=== PATIENT | female | born 1995 | race African-American/Black ===

== ENCOUNTER 2024-11-14 10:34 | Outpatient (REF) | payer MEDICAID, SELFPAY ==
--- NOTE | ~2024-11-14 | XR_ITS ---
EXAMINATION: XR ANKLE 3 OR MORE VIEWS RIGHT HISTORY: PAIN COMPARISON: There are no prior studies available for comparison. FINDINGS: Three views of the right ankle are submitted. Osseous mineralization is normal. There is no fracture or dislocation. The joint spaces are preserved. The soft tissues are unremarkable. XR/XR ankle RT min 3V IMPRESSION: Unremarkable examination of the right ankle. Electronically signed by: Jose Corrales MD 11/14/2024 12:09 PM EDT
--- OUTSIDE RECORDS SUMMARY | 2024-11-14 12:08 | XMS_ITS | Encounter Summary ---
Author Organization [employer] Address [address] [facility] [address] [facility] [address] [place] [address] Care Team Providers Care [employer] Workflow Consultant Name Role Phone Unavailable Primary Care Provider Unavailabl e Encounter Details Date Type Department Care Team (Latest Contact Info) Description 11/14/2024 Travel Social History Tobacco Use Types Packs/Day Years Used Date Smoking Tobacco: Never Assessed Comments Unknown Sex and Gender Information Value Date Recorded Sex Assigned at Choose not to disclose 9:11 AM EDT Legal Sex Female 10:24 AM EST Gender Identity Choose not to disclose 9:11 AM EDT Sexual Orientation Choose not to disclose 2024 9:11 AM EDT documented as of this encounter Plan of Treatment Not on file documented as of this encounter Visit Diagnoses Not on filedocumented in this encounter
--- OUTSIDE RECORDS SUMMARY | 2024-11-14 12:08 | XMS_ITS | Encounter Summary ---
Author Organization [address] [employer] Address [address] [facility] [address] [place] [address] Care Team Providers Care Brazer Assembler Name Role Phone Unavailable Primary Care Provider Unavailabl e Reason for Visit * Reason Comments Foot Pain Encounter Details Date Type Department Care Team (Late st Contact Info) Description 11/14/2024 10:00 AM EDT Office Visit [facility] [address] [place] [address] Maico Villareal MD [address] [place] [address] Chronic pain of right ankle (Primary Dx) Social History Tobacco Use Types Packs/Day Years Used Date Smoking Tobacco: Never Assessed Comments Unknown Sex and Gender Information Value Date Recorded Sex Assigned at Choose not to disclose 9:11 AM EDT Legal Sex Female 10:24 AM EST Gender Identity Choose not to disclose 9:11 AM EDT Sexual Orientation Choose not to disclose 2024 9:11 AM EDT documented as of this encounter Last Filed Vital Signs Vital Sign Reading Time Taken Comments Blood Pressure 127/83 11/14/2024 9:48 AM EDT Pulse 75 11/14/2024 9:48 AM EDT Temperature 36.8 ??C (98.3 ??F) 11/14/2024 9:48 AM ED T Respiratory Rate 18 11/14/2024 9:48 AM EDT Oxygen Saturation 100% 11/14/2024 9:48 AM EDT Inhaled Oxygen Concentration - - Weight 110 kg (243 lb) 11/14/2024 9:48 AM EDT Height - - Body Mass Index - - documented in this encounter Progress Notes * Maico Villareal MD - 11/14/2024 10:00 AM EDT Subjective History was provided by the patient. Jonatan Magana is a 29 y.o. choose not to disclose NEW PATIENT who presents for evaluation of7-year duration of right lateral ankle pain. Recalls falling at the onset of her symptoms. Moved from [facility] via [facility]/[place]. States increase pain with walking and getting up from a seated position. Tender to touch. Denies F/C. Tried a topical medication (unsure of the name) in the past without significant relief. Denies current sexual partner. Denies any chance of . [place]Creole telephone per diem interpreter: Prashanth (#[id number]) Objective Vitals: 11/14/24 0948 BP: 127/83 BP Location: Right arm Patient Position: Sitting BP Cuff Size: Adult Pulse: 75 Resp: 18 Temp: 98.3 ??F (36.8 ??C) TempSrc: Temporal SpO2: 100% Weight: 243 lb (110 kg) Physical Exam Vitals reviewed. Constitutional: General: Jonatan is not in acute distress. Appearance: Normal appearance. Jonatan is not ill-appearing, toxic-appearing or diaphoretic. HENT: Head: Normocephalic and atraumatic. Right Ear: External ear normal. Left Ear: External ear normal. Mouth/Throat: Pharynx: Oropharynx is clear. Eyes: Extraocular Movements: Extraocular movements intact. Conjunctiva/sclera: Conjunctivae normal. Pulmonary: Effort: Pulmonary effort is normal. Musculoskeletal: General: Tenderness present. No swelling or deformity. Normal range of motion. Cervical back: Neck supple. Right lower leg: No edema. Left lower leg: No edema. Comments: Right lateral ankle with tenderness to palpation at posterior talofibular ligament area; no deformity; no edema; no overlying skin erythema Skin: General: Skin is warm and dry. Neurological: General: No focal deficit present. Mental Status: Jonatan is alert and oriented to person, place, and time. Mental status is at baseline. Psychiatric: Mood and Affect: Mood normal. Behavior: Behavior normal. Jonatan was seen today for foot pain. Diagnoses and all orders for this visit: Chronic pain of right ankle (Primary) - XR Ankle 3+ Views Right; Future - ibuprofen 600 MG tablet; Take 1 tablet (600 mg) by mouth every 8 (eight) hours if needed for mildpain or moderate pain for up to 10 days. New patient presents to [facility] due to chronic right lateral ankle pain In the posterior talofibular ligament area Symptom onset 7 years ago after a fall Did not seek care until now Recently moved from [facility] (came to [place] in 03/2024) Suspect ligament strain, but will check X-ray given duration of her symptoms Recommended Ibuprofen 600mg TID prn Ankle stirrup brace provided today Indications for UC/ER use reviewed Advised to contact the clinic if persistent or worsening symptoms Agrees with the plan documented in this encounter Plan of Treatment Scheduled Orders Name Type Priority Associated Diagnoses Orde r Schedule XR Ankle 3+ Views Right Imaging Routine Chronic pain of right ankle Expected: 11/14/2024, Expires: 11/14/2025 documented as of this encounter Visit Diagnoses Diagnosis Chronic pain of right ankle- Primary documented in this encounter
--- OUTSIDE RECORDS SUMMARY | 2024-11-14 12:08 | XMS_ITS | Clinical Summary ---
Author Organization [employer] Address [address] [facility] [address] [place] [address] Care Team Providers Care Reprint Sorter Name Role Phone Unavailable Primary Care Provider Unavailabl e Allergies No known active allergies Medications ibuprofen 600 MG tabletIndicatio ns:Chronic pain of right ankle Take 1 tablet (600 mg) by mouth every 8 (eight) hours if needed for mild pain or moderate pain for up to 10 days. 30 tablet 11/14/2024 11/25/19 25 Active Encounters Date Type Department Care Team Description 11/14/2024 10:00 AM EDT Office Visit [facility] [address] [place] [id number] Maico Villareal MD Chronic pain of right ankle (Primary Dx) 11/14/2024 Travel from Last 3 Months Social History Tobacco Use Types Packs/Day Years Used Date Smoking Tobacco: Never Assessed Comments Unknown Sex and Gender Information Value Date Recorded Sex Assigned at Choose not to disclose 9:11 AM EDT Legal Sex Female 10:24 AM EST Gender Identity Choose not to disclose 9:11 AM EDT Sexual Orientation Choose not to disclose 2024 9:11 AM EDT Last Filed Vital Signs Vital Sign Reading [...] - - Body Mass Index - - Plan of Treatment Health Maintenance Due Date Last Done Comments Depression Screening 1993 HIV Screening 1993 SDOH Screening 1993 Alcohol/Substance Use Screening 2005 Tobacco Screening 2005 Family Planning (PISQ) 2008 Hepatitis C Screening 2011 DTaP/Tdap/Td Vaccines (1 - Tdap) 2012 Hepatitis B Vaccines (1 of 3 - 19+ 3-dose series) 2012 Pap Smear 2014 Cervical Cancer Screening 2023 HPV/Cotest 2023 COVID-19 Vaccine (1 - 2023-2 5 season) 2024 Influenza Vaccine (#1) 2024 Zoster Vaccines (1 of 2) 2043 RSV Patients and Pa tients Aged 60 years or older (1 - 1-dose 75+ series) 2068 HIB Vaccines Aged Out No longer eligi ble based on patient's age to complete this topic HPV Vaccines Aged Out No longer eligi ble based on patient's age to complete this topic Hepatitis A Vaccines Aged Out No long er eligible based on patient's age to complete this topic IPV Vaccines Aged Out No longer eligi ble based on patient's age to complete this topic Meningococcal Vaccine Aged Out No jim hilda eligible based on patient's age to complete this topic Pneumococcal Vaccine: Pediat rics (0 to 5 Years) and At-Risk Patients (6 to 49) Years) Aged Out No longer eligible b ased on patient's age to complete this topic RSV under 20 months Aged Out No longe r eligible based on patient's age to complete this topic Rotavirus Vaccines Aged Out No longer eligible based on patient's age to complete this topic Insurance Cell[employer] C3
== END 2024-11-14 10:35 | disposition home or self-care (01) ==
LOC: HO.HHCX 10:34
PROVIDERS: Visit Provider Family Medicine
DX: M25.571 Pain in right ankle and joints of right foot (principal); G89.29 Other chronic pain
CPT/HCPCS: 73610

== ENCOUNTER → 2024-11-14 10:37 | Outpatient (BNV) | payer MEDICAID, SELFPAY | PROVIDERS: Visit Provider Radiology Diagnostic Radiology | DX: M25.571 Pain in right ankle and joints of right foot (principal) | CPT/HCPCS: 73610 ==

== ENCOUNTER 2025-06-04 10:03 | Outpatient (REF) | payer MEDICAID, SELFPAY ==
[2025-06-04 12:15] LABS: Cholesterol 166 mg/dL (<200); HDL Cholesterol 40 mg/dL (>40); Triglycerides 76 mg/dL (<150)
[2025-06-04 12:29] LABS: Syphilis Screen Nonreactive (Nonreactive)
[2025-06-04 12:35] LABS: HBS Num1 13.50 mIU/mL (0-7.99); HBc Num1 0.05 S/CO (0.00-0.79); HBsAGNum1 0.34 S/CO (0.00-0.99); HIV Num 1 0.05 S/CO (0.00-0.99); Hepatitis B Surface Antigen Negative (Negative); ~HepC Num1 0.12 S/CO (0.00-0.79); ~Hepatitis B Surface Antibody REACTIVE (Nonreactive); ~Hepatitis C Antibody Nonreactive (Nonreactive)
== END 2025-06-04 10:04 | disposition home or self-care (01) ==
LOC: HO.HHCL 10:03
PROVIDERS: Visit Provider Advanced Practice Midwife
DX: Z11.3 Encounter for screening for infections with a predominantly sexual mode of transmission (principal); Z11.59 Encounter for screening for other viral diseases; Z11.4 Encounter for screening for human immunodeficiency virus [HIV]; R63.5 Abnormal weight gain
CPT/HCPCS: 36415; 80061; 83036; 84443; 86704; 86706; 86780; 86803; 87340; 87389

== ENCOUNTER 2025-06-10 12:07 | Outpatient (REF) | payer MEDICAID, SELFPAY ==
[2025-06-10 13:22] LABS: MANUAL DIFF FLAG NO
[2025-06-10 13:42] LABS: Hematocrit 40.2 % (37.0-47.0); Hemoglobin 13.0 g/dl (12.0-16.0); Imm Gran Abs Auto 0.02 X10*3/uL (0.00-0.03); Imm Gran Pct Auto 0.3 % (0.0-0.4); Lymphocytes Absolute Auto 2.0 X10*3/uL (1.2-4.9); Mean Corpuscular HGB Conc 32.3 g/dl (31.0-35.0); Mean Corpuscular Hemoglobin 29.2 pg (27.0-33.0); Mean Corpuscular Volume 90.3 fL (80.0-98.0); NRBC Abs Auto 0.000 X10*3/uL (0.0-0.012); NRBC Pct Auto 0.0 /100WBC (0.0-0.2); Platelet Count 329 X10*3/uL (160-400); Red Blood Count 4.45 X10*6/uL (4.20-5.50); White Blood Count 6.5 X10*3/uL (4.8-10.8)
[2025-06-14 12:22] LABS: TS Negative Control Passed; TS Panel A 0; TS Panel B 0; TS Positive Control Passed; TSpotTB Negative (Negative)
== END 2025-06-10 12:08 | disposition home or self-care (01) ==
LOC: HO.HHCL 12:07
PROVIDERS: PCP Family Medicine; Visit Provider Family Medicine
DX: R69 Illness, unspecified (principal); Z11.1 Encounter for screening for respiratory tuberculosis
CPT/HCPCS: 36415; 85025; 86140; 86481

== ENCOUNTER 2025-07-07 11:15 | Outpatient (REF) | payer MEDICAID, SELFPAY | END 2025-07-07 11:16 | disposition home or self-care (01) | LOC: HO.HHCLNP 11:15 | PROVIDERS: Visit Provider Advanced Practice Midwife | DX: Z12.4 Encounter for screening for malignant neoplasm of cervix (principal); Z11.51 Encounter for screening for human papillomavirus (HPV) | CPT/HCPCS: 87626; 88175 ==